=== PATIENT | female | born 1970 | race Caucasian/White ===

== ENCOUNTER 2021-04-13 09:17 | Day surgery (SDC) | payer BC ==
[~2021-04-13] VITALS: Ht 175.3 cm; Wt 59.0 kg
[2021-04-13] MEDS ORDERED: HYDR-2761 PO (09:50)
[2021-04-13 09:52] VITALS: BP 129/69
--- NOTE | 2021-04-13 09:52 | DISCH ---
DISCHARGE INSTRUCTIONS Condition on Discharge Condition on Discharge: Stable Activity After Discharge Activity Instructions for Disc: Other, see below (Fine motor use of left hand allowable such as eating writing typing) Lifting Instructions after Dis: No heavy lifting, No pulling or pushing Weight Bearing Status after Di: Non weight bearing Diet after Discharge Diet after Discharge: Regular Wound Incision Care Wound/Incision Care: Ice to area for comfort, Keep wound elevated, Do not change dressing (Keep dressing intact until follow-up) Contacting the DRShayna after DC Call your doctor for: Concerns you may have Follow-Up Follow up with: Dr. Beard or Ceci 7 to 10 days ANTOINETTE BEARD MD Apr 13, 2021 09:51
[2021-04-13] MEDS ORDERED: CLINDAMYCIN 900MG PREMIX 50 ML IV PRN (10:00)
[2021-04-13] MEDS ORDERED: BUPIVACAINE MPF 0.5% 30 ML VIAL. ONE (10:06)
[2021-04-13] MEDS ORDERED: IV RINGERS,LACTATED 1000ML 1,000 ML IV SCH ×2 (10:15→12:30)
[2021-04-13] MEDS ORDERED: DEXAMETHASONE SOD PHOS 4 MG/ML VIAL ONE (11:06)
[2021-04-13] MEDS ORDERED: fentaNYL PF VIAL 100 MCG/2 ML VIAL ONE ×2 (11:06→12:42)
[2021-04-13] MEDS ORDERED: FAMOTIDINE 20 MG/2 ML VIAL ONE (11:06)
[2021-04-13] MEDS ORDERED: ONDANSETRON PF 4 MG/2 ML VIAL. ONE (11:06)
[2021-04-13] MEDS ORDERED: LIDOCAINE 2% PF 5 ML VIAL. ONE (11:11)
[2021-04-13] MEDS ORDERED: PROPOFOL 10 MG/ML (20ML) VIAL. IV ONE (11:11)
[2021-04-13] MEDS ORDERED: MORPHINE SULFATE 2 MG/ML INJ. ONE (12:02)
[2021-04-13] MEDS: MORPHINE SULFATE 2 MG/ML INJ. IVP PRN ×3 (12:02→12:39)
--- NOTE | 2021-04-13 12:08 | PDOC4 ---
Operative Note Operative Note Date of surgery: 04/13/2021 Preoperative diagnosis: Displaced left extra-articular distal radius fracture Postoperative diagnosis: Same Operative procedure: Operative reduction internal fixation left distal radius fracture Surgeon: Kisha Assist: Paul pedraza Anesthesia: General Estimated blood loss: 5 cc Complications: None Operative indications: Please see my orthopedic clinic note from yesterday for detailed operative indications Operative procedure: Patient was identified procedure verified patient placed in supine position on operating table. After adequate amounts of general anesthesia were administered plus a pre-existing scalene block the left upper extremity was prepped and draped in standard sterile fashion with an upper arm tourniquet. After timeout was performed patient procedure identified and verified the left upper extremity was exsanguinated by Esmarch bandage tourniquet inflated to 250 mmHg and a standard volar Brian approach was carried out to the distal radius. A standard narrow DVR cross lock distal radial locking plate was selected and provisionally fixated with nonlocking screw in the sliding hole. Fracture had been previously reduced under fluoroscopic guidance to restore volar tilt and reduce the radial displacement restoring the distal radial ulnar joint alignment. With the fracture held in reduction radial styloid fragment was fixated as were the distal locking screws placed under fluoroscopic guidance and ensured no penetration into the joint surface. Proximal locking screws were then placed followed by shaft fixation with a combination of locking and nonlocking screws. Essentially anatomic reduction was noted under multiple fluoroscopic views and hardware placement was checked. Thorough irrigation carried out with normal saline solution closure accomplished with buried Vicryl suture subcuticular Monocryl Steri-Strips Mastisol and a well-padded volar Ortho-Glass splint. Fingers were noted be warm pink following deflation of the tourniquet patient was returned to recovery room in stable condition having tolerated procedure well. Paul pedraza was present for the procedure assisted in patient positioning prepping draping retraction closure and dressings ANTOINETTE HARMON MD Apr 13, 2021 12:08
[2021-04-13] MEDS ORDERED: fentaNYL PF VIAL 100 MCG/2 ML VIAL IVP PRN (12:30)
[2021-04-13] MEDS ORDERED: PROCHLORPERAZINE 10 MG/2 ML VIAL. IVP PRN (12:30)
[2021-04-13] MEDS ORDERED: HYDROmorphone 2 MG/ML VIAL IVP PRN (12:30)
[2021-04-13] MEDS ORDERED: PROCHLORPERAZINE 10 MG/2 ML VIAL. ONE (12:42)
[2021-04-13] MEDS: fentaNYL PF VIAL 100 MCG/2 ML VIAL IVP PRN ×4 (12:44→13:18)
[2021-04-13] MEDS ORDERED: HYDROcodone/APAP 5/325MG 1 TAB TABLET PO ONE (13:00)
[2021-04-13 13:03] VITALS: BP 103/85
== END 2021-04-13 13:50 | disposition home or self-care (01) ==
LOC: SURG 09:17
PROVIDERS: ATTEND Orthopaedic Surgery
DX: S52.552A Other extraarticular fracture of lower end of left radius, initial encounter for closed fracture (principal); Z90.49 Acquired absence of other specified parts of digestive tract; Z90.710 Acquired absence of both cervix and uterus; Z98.890 Other specified postprocedural states; Z79.899 Other long term (current) drug therapy; Z88.0 Allergy status to penicillin; Z88.1 Allergy status to other antibiotic agents; Z88.2 Allergy status to sulfonamides; Z20.822 Contact with and (suspected) exposure to COVID-19; X58.XXXA Exposure to other specified factors, initial encounter; Y93.89 Activity, other specified; Y92.89 Other specified places as the place of occurrence of the external cause; Y99.8 Other external cause status
CPT/HCPCS: 25607; 87426; A4364; A4930; A6402; A6449; C1713; J0780; J1100; J2270; J2405; J2704; J3010; J3490; 76000; A4223; A4452